=== PATIENT | female | born 1990 | race Caucasian/White ===

== ENCOUNTER 2020-05-01 13:42 | Outpatient (REF) | payer OTHER, SELFPAY ==
[2020-05-01 16:47] LABS: MANUAL DIFF FLAG NO
[2020-05-01 16:50] LABS: Basophils Percent Auto 0.2 % (0-2); Eosinophils Percent Auto 0.7 % (0-4); Hematocrit 40.8 % (37-47); Hemoglobin 13.8 g/dl (12.0-16.0); Imm Gran Abs Auto 0.01 X10*3/uL (0.00-0.03); Imm Gran Pct Auto 0.2 % (0.0-0.4); Lymphocytes Absolute Auto 2.1 X10*3/uL (1.2-4.9); Lymphocytes Percent Auto 34.1 % (20-40); Mean Corpuscular HGB Conc 33.8 g/dl (31.0-35.0); Mean Corpuscular Hemoglobin 31.8 pg (27.0-33.0); Mean Platelet Volume 10.2 fL (9.4-12.3); Monocytes Absolute Auto 0.4 X10*3/uL (0.1-1.2); Monocytes Percent Auto 6.3 % (2-11); Neutrophils Absolute Auto 3.6 X10*3/uL (2.0-8.3); Neutrophils Percent Auto 58.5 % (45-73); Platelet Count 270 X10*3/uL (160-400); Red Blood Count 4.34 X10*6/uL (4.20-5.50); White Blood Count 6.1 X10*3/uL (4.8-10.8)
[2020-05-01 17:14] LABS: Alanine Aminotransferase 18 U/L (0-31); Albumin Level 4.3 g/dL (3.5-5.0); Alkaline Phosphatase 61 U/L (39-117); Anion Gap 14 (12-20); Aspartate Amino Transferase 18 U/L (5-31); Bilirubin Total 0.8 mg/dL (0.0-1.0); Blood Urea Nitrogen 18 mg/dL (9-16); Calcium 8.8 mg/dL (8.4-10.2); Carbon Dioxide 25 mmol/L (22-29); Chloride 105 mmol/L (96-108); Estimated Glomerular Filt Rate > 60; Glucose Random 100 mg/dL (60-115); Potassium 4.4 mmol/l (3.3-5.1); Sodium 140 mmol/L (135-145); Total Protein 7.1 g/dL (6.5-8.0)
[2020-05-01 17:35] LABS: TSH reflex Free T4 0.59 mIU/mL (0.32-4.0)
[2020-05-01 17:36] LABS: Erythrocyte Sedimentation Rate 7 MM/HR (0-20)
[2020-05-02 03:40] LABS: SARS COV2 IgG Negative (Negative)
[2020-05-02 21:37] LABS: CRP High Sensitivity 3.3 mg/L
== END 2020-05-01 13:43 | disposition home or self-care (01) ==
LOC: HO.HMGCLDS 13:42
PROVIDERS: PCP Nurse Practitioner Family; Visit Provider Nurse Practitioner Family
DX: R61 Generalized hyperhidrosis (principal); G43.909 Migraine, unspecified, not intractable, without status migrainosus
CPT/HCPCS: 36415; 80053; 84443; 85025; 85652; 86141; 86769

== ENCOUNTER 2020-06-02 15:23 | Outpatient (REF) | payer OTHER, SELFPAY ==
--- NOTE | 2020-06-02 15:24 | MR_ITS ---
EXAMINATION: MR BRAIN WITHOUT CONTRAST CLINICAL INFORMATION: Migraine. COMPARISON: Head CT August 12, 2016. TECHNIQUE: Multiplanar, multisequence imaging of the brain was performed without intravenous contrast. FINDINGS: The ventricles and sulci have normal size/configuration.?There is no abnormal fluid collection or evidence of intracranial hemorrhage. The signal and morphology of the brain parenchyma are normal. There is no mass effect, midline shift, or basal cistern effacement. The midline structures are normal. There is a fully formed corpus callosum. The cerebellar tonsils terminate above the foramen magnum. The major intracranial flow voids are present. There is minimal mucosal thickening in the paranasal sinuses without fluid levels. The middle ear cavities and mastoid air cells are clear. The orbital contents are unremarkable. MR/MR head/brain wo con IMPRESSION: No compelling imaging explanation for headaches. Specifically, no intracranial mass, hydrocephalus, tonsillar ectopia, or significant paranasal sinus disease.
== END 2020-06-02 15:24 | disposition home or self-care (01) ==
LOC: HO.MRI 15:23
PROVIDERS: PCP Nurse Practitioner Family; Visit Provider Nurse Practitioner Family
DX: G43.909 Migraine, unspecified, not intractable, without status migrainosus (principal)
CPT/HCPCS: 70551